=== PATIENT | male | born 1960 | race Caucasian/White ===

== ENCOUNTER → 2020-11-13 | Outpatient (CLI) | payer OTHER ==
[~2020-11-13] MED LIST: ASPIRIN EC81 M1; ASPIRIN PO; BENICAR HCT 401 EACH PO; BENICAR40 MG PO; CELEBREX 200 M200 M1 PO; CELEBREX 200 M200 MG PO; COLACE100 MG PO; CYMBALTA20 MG PO; CYMBALTA30 MG PO; FELDENE20 MG PO; FLEXERIL PO; GLUCOSAMINE CH1 EAC2 PO; HYDROCODON-ACE1 EAC5 PO; HYSINGLA ER30 MG PO; IBUPROFEN 200200 M1 PO; LOSARTAN-HCTZ1 EAC3 PO; LYRICA 75 MG CA75 MG PO; METHADONE HCL5 MG PO; METOPROLOL TART25 MG PO; MOBIC15 MG PO; MULTIVITAMINS PO; NEURONTIN100 MG PO; NORCO 10-325 T1 EACH PO; OXYCONTIN10 M1 PO; OXYCONTIN10 MG PO; OXYCONTIN20 M1 PO; OXYCONTIN20 MG PO; PREDNISONE 10 M10 M1 PO; RAYOS5 MG PO
== END ==
LOC: M.RAD 11:10
PROVIDERS: ATTEND Anesthesiology Pain Medicine
DX: M48.56XA Collapsed vertebra, not elsewhere classified, lumbar region, initial encounter for fracture (principal); M47.812 Spondylosis without myelopathy or radiculopathy, cervical region; M40.295 Other kyphosis, thoracolumbar region; M48.02 Spinal stenosis, cervical region; M25.78 Osteophyte, vertebrae

== ENCOUNTER → 2021-05-20 | Outpatient (CLI) | payer OTHER | LOC: M.LAB 09:57 | PROVIDERS: ATTEND Radiology Diagnostic Radiology | DX: Z11.52 Encounter for screening for COVID-19 (principal); Z20.822 Contact with and (suspected) exposure to COVID-19 ==